=== PATIENT | male | born 1960 | race Caucasian/White ===

== ENCOUNTER 2022-01-29 13:43 | Emergency (ER) | payer BC, OTHER ==
--- OUTSIDE RECORDS SUMMARY | 2022-01-29 13:46 | XMS REPORT | Continuity of Care Document ---
:1960 Author Organization [facility] t Address [address] [place] [address] Care Team Providers Name Role Phone Ashwin Attending Clinician Unavailable NORA COTTER Attending Clinician Unavailable Physician, Primary or Family Admitting Clinician Unavailabl e Payers Payer Name Policy Type Policy Number Effective Date Expiration Date S ource Problems This patient has no known problems. Allergies, Adverse Reactions, Alerts Allergy Allergy Status Severity Reaction(s) Onset Inactive Treating Comm ents Source Name Type Date Date Clinician No Known DA Active [facility] Allergie 12-07 Clear s 00:00: [facility] [address] [place] [address] Medications This patient has no known medications. Procedures This patient has no known procedures. Encounters Start End Encounter Admission Attending Care Care Encounter Source Date/Time Date/Time Type Type Clinicians Facility Department ID 2021-12-07 2021-12-07 Emergency EM JULES Christopher SWETA [id number] [facility] 16:19:00 17:07:00 Safi [address] [facility] 2021-12-07 2021-12-07 Emergency EM JULES Christopher [facility]ACL [id number] [facility] 16:19:00 16:19:00 Safi [id number] [facility] 2021-10-22 2021-10-22 Emergency E [id number] [facility] 19:14:00 20:21:00 KARISSA Results This patient has no known results.
[2022-01-29] MEDS ORDERED: CYCLOBENZAPRINE 10 MG TAB ONE (15:10)
[2022-01-29] MEDS ORDERED: dexAMETHasone 10 MG/ML VIAL ONE (15:11)
[2022-01-29] MEDS ORDERED: HYDROMORPHONE HCL 1 MG/ML INJ ONE ×2 (15:11→15:14)
--- NOTE | 2022-01-29 15:53 | EDPHYS ---
Physician Documentation [facility] Name: Nikhil Tidwell Age: 61 yrs Sex: Male : 1960 Arrival Date: 01/29/2022 Time: 13:47 Bed 12 Private MD: ED Physician Tu Mcgill HPI: 01/29 14:55 This 61 yrs old Male presents to ER via Wheelchair with complaints of Back Pain. rn 14:55 The patient presents with pain that is chronic, with no known mechanism of injury. The rn symptoms are located in the low back. Onset: The symptoms/episode began/occurred 2 month(s) ago. The pain radiates to the right leg and left leg. Associated signs and symptoms: Pertinent negatives: abdominal pain, chest pain, constipation, dysuria, fever, hematuria, incontinence, nausea, numbness, tingling, urinary retention, vomiting, weakness. Modifying factors: The patient symptoms are alleviated by nothing, the patient symptoms are aggravated by any movement. Severity of symptoms: At their worst the symptoms were moderate, in the emergency department the symptoms are unchanged. The patient has experienced similar episodes in the past. The patient has been recently seen by a physician:. Pt reports back pain, radiates down legs, no bowel/bladder problems, no weakness of extremities. NO fever. Reports fall 2 months ago, fell onto back, already seen by spine surgeon Dr. Valencia, who obtained MRI, showed fractures with spinal stenosis and nerve root compression on 12/13/21. Sent patient for spinal injections and did not recommend surgery at that time. Pt waiting for appt for injections 2 days from now but ran out of pain medication. Denies new symptoms. Is ambulatory. . Historical: - Allergies: 14:45 No Known Allergies; aa5 - PMHx: 14:45 Back pain; aa5 - Immunization history:: Adult Immunizations unknown. - Social history:: Smoking status: Patient denies any tobacco usage or history of. - Family history:: not pertinent. - Hospitalizations: : No recent hospitalization is reported. ROS: 14:55 Constitutional: Negative for fever, chills, and weight loss, Neck: Negative for injury, rn pain, and swelling, Cardiovascular: Negative for chest pain, palpitations, and edema, Respiratory: Negative for shortness of breath, cough, wheezing, and pleuritic chest pain, Abdomen/GI: Negative for abdominal pain, nausea, vomiting, diarrhea, and constipation, Back: + injury 2-3 months old, + back pain since then : Negative for injury, bleeding, discharge, and swelling, MS/Extremity: Negative for injury and deformity, Skin: Negative for injury, rash, and discoloration, Neuro: Negative for headache, weakness, numbness, tingling, and seizure. Exam: 14:55 Constitutional: This is a well developed, well nourished patient who is awake, alert, rn appears uncomfortable Head/Face: Normocephalic, atraumatic. Cardiovascular: Regular rate and rhythm. No pulse deficits. Respiratory: No increased work of breathing, no retractions or nasal flaring. Skin: No cyanosis MS/ Extremity: Pulses equal, no cyanosis. Neuro: Awake and alert, GCS 15, oriented to person, place, time, and situation. Motor strength 5/5 in all extremities. Sensory grossly intact. Vital Signs: 14:45 BP 168 / 109; Pulse 97; Resp 20 S; Temp 99.0(TE); Pulse Ox 99% on R/A; Weight 95.25 kg aa5 (R); Height 5 ft. 10 in. (177.80 cm) (R); 15:47 BP 173 / 90; Pulse 86; Resp 18 S; Pulse Ox 98% on R/A; Pain 2/10; aa5 14:45 Body Mass Index 30.13 (95.25 kg, 177.80 cm) aa5 MDM: 14:42 Patient medically screened. rn 15:51 Differential diagnosis: chronic back pain, Osteoarthritis sprain, radiculopathy. Data rn reviewed: vital signs, nurses notes, old medical records, and as a result, I will discharge patient. Counseling: I had a detailed discussion with the patient and/or guardian regarding: the historical points, exam findings, and any diagnostic results supporting the discharge/admit diagnosis, the need for outpatient follow up, to return to the emergency department if symptoms worsen or persist or if there are any questions or concerns that arise at home. Response to treatment: the patient's symptoms have markedly improved after treatment, and as a result, I will discharge patient. ED course: Pt very thankful, feels much better, will dc home with f/u as already planned.. Administered Medications: 15:12 Drug: Dilaudid (HYDROmorphone) 1 mg Route: IM; Site: left deltoid; aa5 15:47 Follow up: Response: No adverse reaction; Pain is decreased aa5 15:12 Drug: Decadron (dexamethasone) 10 mg Route: IM; Site: right deltoid; aa5 15:47 Follow up: Response: No adverse reaction; Pain is decreased aa5 15:12 Drug: Flexeril (cyclobenzaprine) 10 mg Route: PO; aa5 15:47 Follow up: Response: No adverse reaction; Pain is decreased aa5 Disposition Summary: 01/29/22 15:52 Discharge Ordered Location: Home rn Problem: an ongoing problem rn Symptoms: have improved rn Condition: Stable rn Diagnosis - Low back pain rn Followup: rn - With: Private Physician - When: As needed - Reason: Recheck today's complaints, Re-evaluation by your physician Discharge Instructions: - Discharge Summary Sheet rn - Acute Back Pain, Adult rn - Musculoskeletal Pain rn Forms: - Medication Reconciliation Form rn - Thank You Letter rn - Antibiotic legal internship - Prescription Opioid Use rn Prescriptions: - Cyclobenzaprine 10 mg Oral Tablet - take 1 tablet by ORAL route every 8 hours As needed; 12 tablet; Refills: 0, rn Product Selection Permitted - Tramadol 50 mg Oral Tablet - take 1 tablet by ORAL route every 8 hours as needed; 12 tablet; Refills: 0, rn Product Selection Permitted - Medrol (Jose) 4 mg Oral Tablets, Dose Pack - take 1 tablet by ORAL route as directed - follow package instructions; 1 rn packet; Refills: 0, Product Selection Permitted Signatures: Tu Mcgill MD MD rn Calderon, Audri, RN RN aa5
--- NOTE | 2022-01-29 15:53 | ER ---
Nurse's Notes [facility] Name: Nikhil Tidwell Age: 61 yrs Sex: Male : 1960 Arrival Date: 01/29/2022 Time: 13:47 Bed 12 Private MD: Diagnosis: Low back pain Presentation: 01/29 14:45 Chief complaint: Patient states: has been having back pain that began with a fall a aa5 couple of months ago. Had MRI completed 12/13/21. Pt c/o lower back pain with tingling to both legs but greater on the left leg. Has been trying to follow-up with pain management doctor. 14:45 Onset of symptoms was January 2022. aa5 14:45 Method Of Arrival: Wheelchair aa5 14:45 Coronavirus screen: At this time, the client does not indicate any symptoms associated aa5 with coronavirus-19. 14:45 Acuity: JOSHUA 4 aa5 14:45 Ebola Screen: Patient denies travel to an Ebola-affected area in the 21 days before aa5 illness onset. Initial Sepsis Screen: Does the patient meet any 2 criteria? HR > 90 bpm. Does the patient have a suspected source of infection? No. Patient's initial sepsis screen is negative. Risk Assessment: Do you want to hurt yourself or someone else? Patient reports no desire to harm self or others. Triage Assessment: 14:50 General: Appears uncomfortable, Behavior is cooperative, restless. Pain: Complains of aa5 pain in back Pain radiates to right leg and left leg Pain currently is 10 out of 10 on a pain scale. Quality of pain is described as sharp, shooting, Is continuous, Noted to be grimacing, moaning, restless. EENT: No signs and/or symptoms were reported regarding the EENT system. Neuro: Level of Consciousness is awake, alert, obeys commands, Oriented to person, place, time, situation. Cardiovascular: Heart tones S1 S2 present Rhythm is regular. Respiratory: Airway is patent Respiratory effort is even, unlabored, Respiratory pattern is regular, symmetrical. GI: Abdomen is round non-distended. : No signs and/or symptoms were reported regarding the genitourinary system. Denies incontinence. Derm: Skin is pink, warm \T\ dry. Musculoskeletal: Range of motion: intact in all extremities. Historical: - Allergies: 14:45 No Known Allergies; aa5 - PMHx: 14:45 Back pain; aa5 - Immunization history:: Adult Immunizations unknown. - Social history:: Smoking status: Patient denies any tobacco usage or history of. - Family history:: not pertinent. - Hospitalizations: : No recent hospitalization is reported. Screenin:50 Abuse screen: Denies threats or abuse. Nutritional screening: No deficits noted. aa5 Tuberculosis screening: No symptoms or risk factors identified. Fall Risk None identified. Assessment: 15:48 Reassessment: Patient is alert, oriented x 3, equal unlabored respirations, skin aa5 warm/dry/pink. Patient states feeling better. Patient states symptoms have improved. Pain: Pain currently is 2 out of 10 on a pain scale. Vital Signs: 14:45 BP 168 / 109; Pulse 97; Resp 20 S; Temp 99.0(TE); Pulse Ox 99% on R/A; Weight 95.25 kg aa5 (R); Height 5 ft. 10 in. (177.80 cm) (R); 15:47 BP 173 / 90; Pulse 86; Resp 18 S; Pulse Ox 98% on R/A; Pain 2/10; aa5 14:45 Body Mass Index 30.13 (95.25 kg, 177.80 cm) aa5 ED Course: 13:47 Patient arrived in ED. rg4 14:42 Tu Mcgill MD is Attending Physician. rn 14:45 Arm band placed on. aa5 14:53 Triage completed. aa5 15:47 Smita Celeste, RN is Primary Nurse. aa5 16:45 No provider procedures requiring assistance completed. Patient did not have IV access iw during this emergency room visit. Administered Medications: 15:12 Drug: Dilaudid (HYDROmorphone) 1 mg Route: IM; Site: left deltoid; aa5 15:47 Follow up: Response: No adverse reaction; Pain is decreased aa5 15:12 Drug: Decadron (dexamethasone) 10 mg Route: IM; Site: right deltoid; aa5 15:47 Follow up: Response: No adverse reaction; Pain is decreased aa5 15:12 Drug: Flexeril (cyclobenzaprine) 10 mg Route: PO; aa5 15:47 Follow up: Response: No adverse reaction; Pain is decreased aa5 Medication: 16:45 VIS not applicable for this client. aa5 Outcome: 15:52 Discharge ordered by . rn 16:45 Discharged to home via wheelchair, with family. iw 16:45 Condition: good 16:45 Discharge instructions given to patient, Instructed on discharge instructions, follow up and referral plans. medication usage, Demonstrated understanding of instructions, follow-up care, medications, Prescriptions given X 3. 16:45 Patient left the ED. iw Signatures: Aleta Farley RN RN iw Tu Mcgill MD MD rn Calderon, Audri, RN RN aa5 Ashlee Spicer rg4 Corrections: (The following items were deleted from the chart) 14:57 14:45 Pulse 97bpm; Resp 20bpm; Spontaneous; Pulse Ox 99% RA; Temp 99.0F Temporal; aa5 aa5 18:29 14:50 Pain: Complains of pain in back Pain radiates to right leg and left leg Pain aa5 currently is 10 out of 10 on a pain scale. Quality of pain is described as sharp, shooting, Is continuous, aa5
[2022-01-29 16:49] VITALS: TEMP 99
[2022-01-29 16:52] VITALS: BP 173/90; O2SAT 98
== END 2022-01-29 16:45 | disposition home or self-care (01) ==
LOC: ER 13:43
DX: M54.50 Low back pain, unspecified (principal)
CPT/HCPCS: J1100; J1170; 96372; 99283